=== PATIENT | female | born 1985 | race Asian ===

== ENCOUNTER 2017-01-30 14:52 | Emergency (ER) | payer OTHER ==
[2017-01-30 15:07] VITALS: TEMP 98.2; BMI 20.8
[2017-01-30] MEDS ORDERED: morphine CARPU-JECT 4 MG/1 ML DISP.SYRIN IVPUSH ONE (15:16)
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
[2017-01-30] MEDS ORDERED: MIDAZOLAM HCL 2 MG/2 ML SINGLE DOSE VIAL IVPUSH ONE ×3 (16:12→17:07)
[2017-01-30] MEDS ORDERED: MIDAZOLAM HCL 2 MG/2 ML SINGLE DOSE VIAL ONE ×3 (16:13→17:07)
[2017-01-30] MEDS ORDERED: KETAMINE HCL 200 MG/20 ML VIAL IVPUSH ONE (17:06)
[2017-01-30] MEDS ORDERED: KETAMINE HCL 200 MG/20 ML VIAL ONE (17:06)
[2017-01-30 17:52] VITALS: PULSE 81
[2017-01-30 18:54] VITALS: BP 139/75
== END 2017-01-30 18:54 | disposition home or self-care (01) ==
LOC: JER 14:52
PROC: 3E033NZ Introduction of Analgesics, Hypnotics, Sedatives into Peripheral Vein, Percutaneous Approach (ICD-10-PCS; principal; 2017-01-30)
PROC: 3E033NZ Introduction of Analgesics, Hypnotics, Sedatives into Peripheral Vein, Percutaneous Approach (ICD-10-PCS; 2017-01-30)
PROC: 3E033NZ Introduction of Analgesics, Hypnotics, Sedatives into Peripheral Vein, Percutaneous Approach (ICD-10-PCS; 2017-01-30)
PROC: 3E033NZ Introduction of Analgesics, Hypnotics, Sedatives into Peripheral Vein, Percutaneous Approach (ICD-10-PCS; 2017-01-30)
PROC: 0RSMXZZ Reposition Left Elbow Joint, External Approach (ICD-10-PCS; 2017-01-30)
DX: S53.125A Posterior dislocation of left ulnohumeral joint, initial encounter (principal); V18.0XXA Pedal cycle driver injured in noncollision transport accident in nontraffic accident, initial encounter; Y92.414 Local residential or business street as the place of occurrence of the external cause; Y93.55 Activity, bike riding; Y99.8 Other external cause status
CPT/HCPCS: 73070-TC-LT; 73090-TC-LT; 99282-25